=== PATIENT | female | born 1980 ===

== ENCOUNTER → 2020-07-28 10:35 | Outpatient (BNVA) | payer OTHER, SELFPAY | PROVIDERS: PCP Internal Medicine; Visit Provider Student in an Organized Health Care Education/Training Program | DX: M79.7 Fibromyalgia (principal) | CPT/HCPCS: 99212 ==

== ENCOUNTER 2021-01-24 10:21 | Outpatient (REF) | payer OTHER, SELFPAY ==
--- NOTE | ~2021-01-24 | XR_ITS ---
EXAMINATION: XR SHOULDER, RIGHT CLINICAL INFORMATION: Right shoulder pain. COMPARISON: None TECHNIQUE: AP external rotation, Grashey, scapular Y, and axillary views of the right shoulder. FINDINGS: The bones and soft tissues are normal. No fracture. Glenohumeral and acromioclavicular alignment is anatomic with normal joint space. No abnormal soft tissue calcifications. XR/XR shoulder RT min 2V IMPRESSION: Unremarkable right shoulder.
[2021-01-24 10:43] LABS: MANUAL DIFF FLAG NO
[2021-01-24 11:14] LABS: Basophils Percent Auto 0.5 % (0-2); Eosinophils Absolute Auto 0.2 X10*3/uL (0.0-0.4); Eosinophils Percent Auto 3.6 % (0-4); Hematocrit 31.1 % (37-47); Hemoglobin 8.7 g/dl (12.0-16.0); Imm Gran Abs Auto 0.02 X10*3/uL (0.00-0.03); Imm Gran Pct Auto 0.3 % (0.0-0.4); Lymphocytes Absolute Auto 2.4 X10*3/uL (1.2-4.9); Lymphocytes Percent Auto 37.7 % (20-40); Mean Corpuscular Hemoglobin 19.3 pg (27.0-33.0); Mean Platelet Volume 10.3 fL (9.4-12.3); Monocytes Absolute Auto 0.4 X10*3/uL (0.1-1.2); Monocytes Percent Auto 5.8 % (2-11); Neutrophils Absolute Auto 3.3 X10*3/uL (2.0-8.3); Neutrophils Percent Auto 52.1 % (45-73); Platelet Count 384 X10*3/uL (160-400); Red Blood Count 4.51 X10*6/uL (4.20-5.50); Red Cell Distribution Width 18.9 % (11.0-16.0); White Blood Count 6.3 X10*3/uL (4.8-10.8)
[2021-01-24 11:27] LABS: Appearance Urine HAZY; Color Urine YELLOW; Glucose Urine UA NEG (NEG); Leukocyte Esterase Urine TRACE (NEG); Nitrite Urine NEG (NEG); Specific Gravity - Urine >= 1.030 (1.005-1.025); UACC Culture Trigger YES; Urine Blood NEG (NEG); Urine Ketones NEG (NEG); Urine Protein 1+ MG/DL (NEG-TRACE)
[2021-01-24 11:44] LABS: Alanine Aminotransferase 15 U/L (0-31); Alkaline Phosphatase 88 U/L (39-117); Anion Gap 12 (12-20); Aspartate Amino Transferase 17 U/L (5-31); Bilirubin Total 0.3 mg/dL (0.0-1.0); Blood Urea Nitrogen 15 mg/dL (9-16); C Reactive Protein 2.88 mg/dL (< or = 0.50); Calcium 8.9 mg/dL (8.4-10.2); Carbon Dioxide 26 mmol/L (22-29); Chloride 105 mmol/L (96-108); Cholesterol 134 mg/dL; Estimated Glomerular Filt Rate > 60; Glucose Fasting 78 mg/dL (60-99); HDL Cholesterol 39 mg/dL; LDL Cholesterol Calculated 74 mg/dl; Magnesium 1.9 mg/dL (1.6-2.6); Sodium 139 mmol/L (135-145); Total Protein 7.4 g/dL (6.5-8.0); Triglycerides 106 mg/dL
[2021-01-24 12:03] LABS: Erythrocyte Sedimentation Rate 37 MM/HR (0-20)
[2021-01-24 12:07] LABS: TSH reflex Free T4 2.12 uIU/mL (0.32-4.0); Vitamin D 25-OH Total 16.3 ng/mL (>30)
[2021-01-24 12:14] LABS: Folate 17.5 ng/mL (> or = 4.0); Vitamin B12 283 pg/mL (200-900)
[2021-01-24 13:12] LABS: Bacteria Urine 2+ /LPF; RBC Urine 0 /HPF (0); Squamous Epithelial Cell Urine 2+ /LPF
[2021-01-24 13:17] LABS: Mucus Urine 1+ /LPF
== END 2021-01-24 10:22 | disposition home or self-care (01) ==
LOC: HO.LAB 10:21
PROVIDERS: PCP Internal Medicine; Visit Provider Internal Medicine
DX: Z00.00 Encounter for general adult medical examination without abnormal findings (principal); E66.9 Obesity, unspecified; M79.7 Fibromyalgia; R20.2 Paresthesia of skin; E55.9 Vitamin D deficiency, unspecified; D50.9 Iron deficiency anemia, unspecified; E53.8 Deficiency of other specified B group vitamins; K21.9 Gastro-esophageal reflux disease without esophagitis; E04.1 Nontoxic single thyroid nodule; M25.511 Pain in right shoulder
CPT/HCPCS: 36415; 73030; 80053; 80061; 81001; 82306; 82607; 82746; 83735; 84443; 85025; 85652; 86140; 87086; 87088; 87186

== ENCOUNTER 2021-02-24 16:20 | Outpatient (REF) | payer OTHER, SELFPAY ==
--- NOTE | ~2021-02-24 | US_ITS ---
EXAMINATION: US THYROID CLINICAL INFORMATION: Nontoxic single thyroid nodule. COMPARISON: Ultrasound soft tissue head/neck thyroid dated 04/15/2018. TECHNIQUE: Linear transducer grayscale and color Doppler examination with attention to the region of the thyroid. FINDINGS: SIZE: Measurements of the thyroid lobes and nodules are given in sagittal, anteroposterior and transverse dimensions respectively. Right Thyroid Lobe: 5.2 x 1.6 x 1.5 cm, volume 6.5 mL. Previously 4.2 x 1.8 x 1.3 cm, volume 5.1 mL. Parenchyma: The gland echotexture is homogeneous. Thyroid vascularity is normal. Left Thyroid Lobe: 5.3 x 1.2 x 1.3 cm, volume 4.3 mL. Previously 4.4 x 1.4 x 1.0 cm, volume 6.2 mL. Parenchyma: The gland echotexture is homogeneous. Thyroid vascularity is normal. Isthmus: 0.3 cm in maximum AP dimension. Previously 0.4 cm. No nodule is seen. Estimated total number of nodules greater than or equal to 1 cm: None. NODES: No lymphadenopathy is seen in the tissue surrounding the thyroid gland. US/US thyroid IMPRESSION: Unremarkable exam.
== END 2021-02-24 16:21 | disposition home or self-care (01) ==
LOC: HO.US 16:20
PROVIDERS: PCP Internal Medicine; Visit Provider Internal Medicine
DX: E04.1 Nontoxic single thyroid nodule (principal)
CPT/HCPCS: 76536

== ENCOUNTER 2023-02-01 11:14 | Outpatient (AMB) | payer OTHER, SELFPAY ==
--- NOTE | 2023-02-01 11:16 | A.OFFPC_ITS ---
Vital Signs 02/01/23 11:18 Height 5 ft 7 in Weight 200 lb 4 oz BMI 31.4 BP 120/68 Blood Pressure Location Lt brachial Position Sitting Pulse 86 Pulse Source Pulse Oximeter Pulse Oximetry (%) 98 Oxygen Delivery Method Room Air Intake Visit Reasons: Fibromyalgia F/U Intake Note: Patient is here to follow up on Fibromyalagia. Toddler Caregiver Required: No Personal Injury Litigation Paralegal: Not Required per policy Accompanied by: Self / Same As Patient Allergies morphine [MORPHINE] Allergy (Unknown, Verified 02/11/23 12:16) UNKNOWN, anxiety, anxiety penicillin V Allergy (Unknown, Verified 02/11/23 12:16) hives Medication List - Last Reconciled 02/11/23 by Rubén Tong MD ascorbic acid (vitamin C) (Vitamin C) 500 mg PO DAILY 90 days cane As directed cholecalciferol (vitamin D3) 125 mcg PO DAILY 90 days cyanocobalamin (vitamin B-12) (Vitamin B-12) 1,000 mcg PO DAILY 90 days cyclobenzaprine 10 mg PO TID PRN 30 days ferrous sulfate 325 mg PO DAILY 90 days meloxicam 15 mg PO DAILY PRN omeprazole 20 mg PO DAILY 90 days pregabalin (Lyrica) 75 mg PO Q8H 30 days quetiapine 25 mg PO BEDTIME 90 days sertraline 50 mg PO DAILY 30 days Tobacco use date assessed: 02/01/23 Dental Screening Dental Screen Date: 02/01/23 Did you have a dental visit in the last 12 months?: Yes Did you have a dental problem in the last 6 months where you did not have access to dental care?: No Was dental information given to patient?: Patient has dentist HPI Fibromyalgia F/U HPI Details 43-year-old female presents to the [facility] for a sick visit. I am covering for her primary provider. Patient is complaining of low back pain and neck pain. No history of trauma or injury prior to the onset of symptoms. Patient is giving history of fibromyalgia. Pain is in the neck area without any radiation into the arms. [facility] Medical History Anxiety Depression Fibromyalgia Gastroesophageal reflux disease without esophagitis SHAWN (iron deficiency anemia) Insomnia Iron deficiency anemia Obesity (BMI 30-39.9) Paresthesia of both hands Vitamin B12 deficiency Vitamin D deficiency Surgical History S/P repair of PDA (patent ductus arteriosus) Thyroid nodule Hx of cholecystectomy History of section Family History Father HTN (hypertension) CVD (cardiovascular disease) Mother CVD (cardiovascular disease) HTN (hypertension) Diabetes mellitus Sister No problems noted. Sister No problems noted. Son No problems noted. Son No problems noted. Daughter No problems noted. Social History Household Members: Children Housing: Apartment Alcohol intake: never Patient Tobacco Use Status: Never used Tobacco e-Cigarette/Vaping Use: Never Used Second Hand Smoke Exposure: No service: No Current occupational status: unemployed Cognitive needs: Yes (cane) Hearing needs: No Vision needs: Yes (glasses) Questionnaire PHQ-9 Over the last 2 weeks, how often have you been bothered by any of the following problems? 1. Little interest or pleasure in doing things: nearly every day 2. Feeling down, depressed, or hopeless: several days 3. Trouble falling or staying asleep, or sleeping too much: nearly every day 4. Feeling tired or having little energy: nearly every day 5. Poor appetite or overeating: nearly every day 6. Feeling bad about yourself - or that you are a failure or have let yourself or your family down: several days 7. Trouble concentrating on things, such as reading the newspaper or watching television: not at all 8. Moving or speaking so slowly that other people could have noticed. Or the opposite - being so fidgety or restless that you have been moving around a lot more than usual: not at all 9. Thoughts that you would be better off or of hurting yourself in some way: several days Total score: 15 Source: Developed by Drs. Thomas Oconnell, Mica Anglin, Konrad Fry and colleagues, with an educational vanna from [employer]. Thrive Questionnaire Date Thrive assessed: 02/01/23 I am a: Patient What is your living situation today?: I have a steady place to live Within the past 12 months, did the food you bought not last and you didn't have the money to get more?: Never true Within the past 12 months, did you worry whether your food would run out before you got money to buy more?: Never true Do you have trouble paying for medicines?: No Do you have trouble getting transportation to medical appointments?: No Do you have trouble paying your heating and electricity bill?: No Do you have trouble taking care of your child, family member or friend?: No Do you have trouble with day-to-day activities such as bathing, preparing meals, shopping, managing finances, etc.?: No Are you currently unemployed and looking for a job?: No Are you interested in more education?: No Currently or been in a relationship where the following occur: no concerns reported AUDIT C Alcohol Use Questionnaire (AUDIT-C) 1. How often do you have a drink containing alcohol?: Never Total Score: 0 LEIGHANN-7 AMB Questionnaire LEIGHANN-7 Date LEIGHANN - 7 assessed: 02/01/23 Feeling nervous, anxious, or on edge: 3 = Nearly every day Not being able to stop or control worryin = Nearly every day Worrying too much about different things: 3 = Nearly every day Trouble relaxin = Nearly every day Being so restless that it is hard to sit still: 2 = More than half the days Becoming easily annoyed or irritable: 2 = More than half the days Feeling afraid as if something awful might happen: 1 = Several days Total LEIGHANN-7 score (0-4 normal; 5-9 mild; 10-14 moderate; 15-21 severe): 17 Source: Developed by Drs. Thomas Oconnell, Mica Anglin, Konrad Fry and colleagues, with an educational vanna from [employer]. Physical exam (Primary Care) Vital Signs: Last Vital Signs Pulse 86 02/01/23 11:18 BP 120/68 02/01/23 11:18 Pulse Ox 98 02/01/23 11:18 Oxygen Delivery Method Room Air 02/01/23 11:18 BMI result Body Mass Index 31.4 Tobacco/Smoking Status: Tobacco use Status Tobacco use date assessed 02/01/23 02/01/23 11:18 Patient Tobacco Use Status Never used Tobacco 02/01/23 11:18 e-Cigarette/Vaping Use Never Used 02/01/23 11:18 PHQ-9: PHQ-9 Score PHQ-9: Total score 15 02/01/23 11:29 Thrive Assessment: Date of Thrive Assessment Date Thrive assessed 02/01/23 02/01/23 11:18 Currently or been in a relationship where the following occur: no concerns reported Const General: cooperative and healthy appearing Nutritional Appearance: well nourished Orientation/consciousness: patient oriented x3 Limitations: no limitations HENMT Head: Yes normal to inspection Eyes General: appearance normal, both eyes and all related structures Neck Neck: Yes normal visual inspection Chest Chest palpation & inspection: normal palpation of entire chest wall Resp Effort & Inspection: normal respiratory effort Neuro General: patient oriented x3 Assessment and Plan Assessment & Plan (1) Back pain: Code(s): M54.9 - Dorsalgia, unspecified Qualifiers: Back pain location: low back pain Chronicity: unspecified Back pain laterality: midline Sciatica presence: without sciatica Qualified Code(s): M54.50 - Low back pain, unspecified Plan: Continue anti-inflammatory and muscle relaxant. If symptoms not better to follow-up here. Medications: Changed From cyanocobalamin (vitamin B-12) 1,000 mcg PO DAILY 90 days 90 tabs 3RF E53.8 - Deficiency of other specified B group vitamins To cyanocobalamin (vitamin B-12) (Vitamin B-12) 1,000 mcg PO DAILY 90 tabs 3RF 90 days E53.8 - Deficiency of other specified B group vitamins Refilled cholecalciferol (vitamin D3) 125 mcg PO DAILY 90 caps 3RF 90 days E55.9 - Vitamin D deficiency, unspecified ferrous sulfate 325 mg PO DAILY 90 tabs 3RF 90 days D50.9 - Iron deficiency anemia, unspecified omeprazole 20 mg PO DAILY 90 tabs 3RF 90 days K21.9 - Gastro-esophageal reflux disease without esophagitis ascorbic acid (vitamin C) (Vitamin C) 500 mg PO DAILY 90 tabs 3RF 90 days M79.7 - Fibromyalgia quetiapine 25 mg PO BEDTIME 90 tabs 1RF 90 days F32.9 - Major depressive disorder, single episode, unspecified sertraline 50 mg PO DAILY 30 tabs 3RF 30 days F32.9 - Major depressive disorder, single episode, unspecified, F41.9 - Anxiety disorder, unspecified Coding Level of Care Code Est Pt Level 3 (18987) Diagnoses Midline low back pain without sciatica, unspecified chronicity M54.50 Back pain location: low back pain Chronicity: unspecified Back pain laterality: midline Sciatica presence: without sciatica
[2023-02-01 11:18] VITALS: BP 120/68; PULSE 86; O2SAT 98; BMI 31.4
== END 2023-02-01 11:42 | disposition home or self-care (01) ==
PROVIDERS: PCP Internal Medicine; Visit Provider Internal Medicine
DX: M54.50 Low back pain, unspecified (principal)
CPT/HCPCS: 99213

== ENCOUNTER 2023-11-06 09:33 | Outpatient (AMB) | payer OTHER, SELFPAY ==
[2023-11-06 09:36] VITALS: BP 136/72; PULSE 70; O2SAT 98; BMI 32.4
--- NOTE | 2023-11-06 09:36 | MHC.PC.OV ---
Vital Signs 11/06/23 09:36 Height 5 ft 7 in Weight 207 lb BMI 32.4 BP 136/72 Blood Pressure Location Lt brachial Position Sitting Pulse 70 Pulse Source Pulse Oximeter Pulse Oximetry (%) 98 Oxygen Delivery Method Room Air Intake Visit Reasons: Follow Up Allergies morphine [MORPHINE] Allergy (Unknown, Verified 11/06/23 10:19) UNKNOWN, anxiety, anxiety penicillin V Allergy (Unknown, Verified 11/06/23 10:19) hives Medication List - Last Reconciled 11/06/23 by Gerard Fonseca MD ascorbic acid (vitamin C) (Vitamin C) 500 mg PO DAILY 90 days cane As directed cholecalciferol (vitamin D3) 125 mcg PO DAILY 90 days cyanocobalamin (vitamin B-12) (Vitamin B-12) 1,000 mcg PO DAILY 90 days cyclobenzaprine 10 mg PO TID PRN 30 days ferrous sulfate 325 mg PO DAILY 90 days ibuprofen 600 mg PO TID PRN omeprazole 20 mg PO DAILY 90 days quetiapine 25 mg PO BEDTIME 90 days sertraline 50 mg PO DAILY 30 days Tobacco use date assessed: 11/06/23 Dental Screening Dental Screen Date: 11/06/23 Did you have a dental visit in the last 12 months?: Yes Did you have a dental problem in the last 6 months where you did not have access to dental care?: No Was dental information given to patient?: Patient has dentist HPI Follow Up HPI Details Patient comes in today for her follow up visit - was last seen by me over 2 years ago on 04/18/2021 States that she went to the ER at [facility] at the end of last month on 10/07/2023 for headaches and dysuria She recalls also experiencing some flank pains at the time Was supposedly diagnosed with a UTI and sent home on oral Abx, which she states helped only partially She went to a local urgent care center ([facility]) in [place] last week for persistent symptoms and was diagnosed with kidney stones and was prescribed some Tamsulosin and given IV Toradol for pain and was advised to follow up with her PCP She reports that her pain, which was initially over her flank, is now over the suprapubic area She has not seen any blood in her urine lately She is also complaining of multiple other symptoms, including recurrent headaches due to her migraine and generalized aches and pains related to her fibromyalgia States that she does have photophobia associated with her headaches Reports also recurrent tingling sensation and numbness in her hands and fingers often lately She denies any chest pains, no increased SOB No nausea/vomiting, no abdominal pain No change in bowel habits noted [facility] Medical History Gastroesophageal reflux disease without esophagitis Iron deficiency anemia Vitamin B12 deficiency Vitamin D deficiency Anxiety Obesity (BMI 30-39.9) Paresthesia of both hands Depression Insomnia Fibromyalgia SHAWN (iron deficiency anemia) Surgical History S/P repair of PDA (patent ductus arteriosus) Thyroid nodule Hx of cholecystectomy History of section Family History Father HTN (hypertension) CVD (cardiovascular disease) Mother CVD (cardiovascular disease) HTN (hypertension) Diabetes mellitus Sister No problems noted. Sister No problems noted. Son No problems noted. Son No problems noted. Daughter No problems noted. Social History Household Members: Children Housing: Apartment Alcohol intake: never Patient Tobacco Use Status: Never used Tobacco e-Cigarette/Vaping Use: Never Used Second Hand Smoke Exposure: No service: No Current occupational status: unemployed Cognitive needs: Yes (cane) Hearing needs: No Vision needs: Yes (glasses) Questionnaire PHQ-9 Over the last 2 weeks, how often have you been bothered by any of the following problems? 1. Little interest or pleasure in doing things: nearly every day 2. Feeling down, depressed, or hopeless: several days 3. Trouble falling or staying asleep, or sleeping too much: nearly every day 4. Feeling tired or having little energy: nearly every day 5. Poor appetite or overeating: nearly every day 6. Feeling bad about yourself - or that you are a failure or have let yourself or your family down: several days 7. Trouble concentrating on things, such as reading the newspaper or watching television: not at all 8. Moving or speaking so slowly that other people could have noticed. Or the opposite - being so fidgety or restless that you have been moving around a lot more than usual: not at all 9. Thoughts that you would be better off or of hurting yourself in some way: several days Total score: 15 Depression Screening Interpretation: Positive Depression Screening Follow-up: Existing condition and In treatment Depression Screening Done: Yes 56503 - PHQ-9 Billing: Yes Source: Developed by Drs. Thomas Oconnell, Mica Anglin, Konrad Fry and colleagues, with an educational vanna from [employer]. Thrive Questionnaire Date Thrive assessed: 11/06/23 I am a: Patient What is your living situation today?: I have a steady place to live Within the past 12 months, did the food you bought not last and you didn't have the money to get more?: Never true Within the past 12 months, did you worry whether your food would run out before you got money to buy more?: Never true Do you have trouble paying for medicines?: No Do you have trouble getting transportation to medical appointments?: No Do you have trouble paying your heating and electricity bill?: No Do you have trouble taking care of your child, family member or friend?: No Do you have trouble with day-to-day activities such as bathing, preparing meals, shopping, managing finances, etc.?: No Are you currently unemployed and looking for a job?: No Are you interested in more education?: No Currently or been in a relationship where the following occur: No concerns reported THRIVE Score: 0 AUDIT C Alcohol Use Questionnaire (AUDIT-C) 1. How often do you have a drink containing alcohol?: Never 3. How often do you have six or more drinks on one occasion?: Never Total Score: 0 Score Reviewed/Action Taken: Yes LEIGHANN-7 AMB Questionnaire LEIGHANN-7 Date LEIGHANN - 7 assessed: 11/06/23 Feeling nervous, anxious, or on edge: 3 = Nearly every day Not being able to stop or control worryin = Nearly every day Worrying too much about different things: 3 = Nearly every day Trouble relaxin = Nearly every day Being so restless that it is hard to sit still: 2 = More than half the days Becoming easily annoyed or irritable: 2 = More than half the days Feeling afraid as if something awful might happen: 1 = Several days Total LEIGHANN-7 score (0-4 normal; 5-9 mild; 10-14 moderate; 15-21 severe): 17 Source: Developed by Drs. Thomas Oconnell, Mica Anglin, Konrad Fry and colleagues, with an educational vanna from [employer]. Review of Systems Const Reports body aches, Denies chills, Reports fatigue, Denies fever(s) and Reports headache(s) (on and off, associated with photophobia) Eyes Reports photophobia (with headaches) ENT Denies dysphagia, Denies dizziness, Denies otalgia, Reports headache(s) (on and off, associated with photophobia), Denies neck pain, Denies odynophagia and Denies sore throat Card Denies chest pain, Denies palpitations and Denies dyspnea Resp Denies cough, Denies dyspnea and Denies wheezing GI Denies abdominal pain, Denies constipation, Denies dysphagia, Denies heartburn, Denies diarrhea, Denies nausea, Denies odynophagia and Denies vomiting Denies hematuria, Denies difficulty voiding, Denies nocturia, Reports dysuria and Reports urinary urgency Musc Reports back pain (on and off), Reports myalgias, Denies neck pain, Reports numbness (on and off in both hands) and Reports tingling (on and off in both hands) Skin/Breast Denies rash Neuro Denies dizziness, Reports headache(s) (on and off, associated with photophobia), Reports numbness (on and off in both hands), Reports tingling (on and off in both hands) and Reports paresthesias (on and off, generalized) Endo Reports fatigue and Denies palpitations Aller/Immun Denies wheezing Physical exam (Primary Care) Vital Signs: Last Vital Signs Pulse 70 11/06/23 09:36 BP 136/72 11/06/23 09:36 Pulse Ox 98 11/06/23 09:36 Oxygen Delivery Method Room Air 11/06/23 09:36 BMI result Body Mass Index 32.4 Tobacco/Smoking Status: Tobacco use Status Tobacco use date assessed 11/06/23 11/06/23 09:38 Patient Tobacco Use Status Never used Tobacco 11/06/23 09:36 e-Cigarette/Vaping Use Never Used 11/06/23 09:36 PHQ-9: PHQ-9 Score PHQ-9: Total score 15 11/06/23 09:38 Depression Screening Interpretation: Positive Depression Screening Follow-up: Existing condition and In treatment Thrive Assessment: Date of Thrive Assessment Date Thrive assessed 11/06/23 11/06/23 09:38 Currently or been in a relationship where the following occur: No concerns reported Const General: no acute distress and alert HENMT Ears: TM's normal bilaterally and EAC's normal Throat: Yes posterior oropharynx normal and Yes tonsils normal (no TP congestion noted) Eyes Direct Ophthalmoscopy: photophobia (with headaches) Neck Neck: Yes no lymphadenopathy and Yes tender (over the cervical spine and paraspinal areas bilaterally) Thyroid: Thyroid normal Resp Auscultation: clear to auscultation bilaterally, no rales and no wheezes Cardio Rate: regular rate Rhythm: regular rhythm Heart sounds: no murmurs GI Palpation (GI): Soft to palpation and nontender Auscultation: normal bowel sounds General: Yes no CVA tenderness Back/Spine/Pelvis Back: no CVA tenderness Thoracic/Lumbar Spine: paraspinal muscle tenderness bilaterally (over the cervical and thoracolumbar spine (diffuse)) and lumbar spinal tenderness Extrem General: Yes no clubbing, cyanosis or edema Right upper extremity: shoulder/upper arm Details: tenderness (diffusely over the scapular area) Left upper extremity: shoulder/upper arm Details: tenderness (diffusely over the scapular areas) Assessment and Plan Assessment & Plan (1) Urinary tract stones: Code(s): N20.9 - Urinary calculus, unspecified Plan: Was reportedly diagnosed with this at urgent care in [place] last week Will send patient for renal US for further evaluation She is encouraged to increase her oral fluid intake Will also refer her to urology for further evaluation and management Will start her on Meloxicam 15 mg QD with food PRN for pain (2) Paresthesia of both hands: Code(s): R20.2 - Paresthesia of skin Plan: Will send her for some labs BERHANE for further evaluation Advised that she has (+) Hx of B12 deficiency and this may be at least part of the reason for her recent symptoms If labs are normal, then will need to consider NCV for further evaluation (3) Iron deficiency anemia: Code(s): D50.9 - Iron deficiency anemia, unspecified Qualifiers: Iron deficiency anemia type: unspecified iron deficiency Qualified Code(s): D50.9 - Iron deficiency anemia, unspecified Plan: Patient advised that she is anemic on her most recent labs done at [facility] back on 10/07/2023, with H/H of 9.2/33.3 Continue Ferrous Sulfate 325 mg QD She is advised again that a lot of her current symptoms, including her fatigue, HIDALGO and paresthesias are most likely related to her significant anemia Will also her again to hematology for further evaluation and management - she was previously referred but she did not keep her appts (4) Fibromyalgia: Code(s): M79.7 - Fibromyalgia Plan: Reinforced increased physical activity and regular exercise to help manage her fibromyalgia symptoms better She was on Cyclobenzaprine 10 mg TID PRN previously but states that it has not been helping We tried starting her on Lyrica a couple of years ago but she did not start on the medication Will try switching her over to Tizanidine 4 mg TID PRN and start her on Gabapentin 100 mg TID Follow up with rheumatology as scheduled (5) Back pain: Code(s): M54.9 - Dorsalgia, unspecified Qualifiers: Back pain location: low back pain Chronicity: unspecified Back pain laterality: midline Sciatica presence: without sciatica Qualified Code(s): M54.50 - Low back pain, unspecified Plan: Reinforced activity and weight-lifting restrictions Will switch her Cyclobenzaprine to Tizanidine 4 mg TID PRN Follow up with pain management as scheduled (6) Gastroesophageal reflux disease without esophagitis: Code(s): K21.9 - Gastro-esophageal reflux disease without esophagitis Plan: Dietary restrictions reinforced Continue Omeprazole 20 mg QD (7) Vitamin B12 deficiency: Code(s): E53.8 - Deficiency of other specified B group vitamins Plan: Continue Vitamin B12 1000 mcg QD Will recheck her Vitamin B12 level for follow up, especially with her recent symptoms of paresthesias (8) Vitamin D deficiency: Code(s): E55.9 - Vitamin D deficiency, unspecified Plan: Continue Vitamin D3 1000 units QD Will recheck her Vitamin D level for follow up (9) Insomnia: Code(s): G47.00 - Insomnia, unspecified Qualifiers: Insomnia type: unspecified Qualified Code(s): G47.00 - Insomnia, unspecified Plan: Sleep hygiene reinforced Quetiapine at bedtime helps with her sleep (10) Anxiety: Code(s): F41.9 - Anxiety disorder, unspecified Plan: Continue Sertraline 50 mg QD (11) Depression: Code(s): F32.9 - Major depressive disorder, single episode, unspecified Qualifiers: Depression Type: unspecified Qualified Code(s): F32.9 - Major depressive disorder, single episode, unspecified Plan: Continue Quetiapine 25 mg Q HS and Sertraline 50 mg QD Follow up with psychiatry as scheduled (12) Obesity (BMI 30-39.9): Code(s): E66.9 - Obesity, unspecified Plan: Reinforced diet/exercise as tolerated/lose weight Plan Follow up in 4 months Orders: Orders UA CC w/rflx Micro + Cult Today M79.7 - Fibromyalgia, R20.2 - Paresthesia of skin, R30.0 - Dysuria Vitamin D 25-OH Total Today E55.9 - Vitamin D deficiency, unspecified, M79.7 - Fibromyalgia, R20.2 - Paresthesia of skin Magnesium Today E83.42 - Hypomagnesemia, R20.2 - Paresthesia of skin C Reactive Protein Today M79.7 - Fibromyalgia, R20.2 - Paresthesia of skin KARLOS Reflex Titer and Pattern Today M79.7 - Fibromyalgia, R20.2 - Paresthesia of skin US renal BI Today N20.9 - Urinary calculus, unspecified Complete Blood Count Auto Diff Today D64.9 - Anemia, unspecified, M79.7 - Fibromyalgia, R20.2 - Paresthesia of skin Comprehensive [place]. Panel Fast Today E78.00 - Pure hypercholesterolemia, unspecified, M79.7 - Fibromyalgia, R20.2 - Paresthesia of skin Lipid Panel Today E78.00 - Pure hypercholesterolemia, unspecified TSH reflex Free T4 Today E78.00 - Pure hypercholesterolemia, unspecified, R20.2 - Paresthesia of skin Vitamin B12 and Folate Today E53.8 - Deficiency of other specified B group vitamins, M79.7 - Fibromyalgia, R20.2 - Paresthesia of skin Erythrocyte Sedimentation Rate Today M79.7 - Fibromyalgia, R20.2 - Paresthesia of skin Rheumatoid Factor Today M79.7 - Fibromyalgia, R20.2 - Paresthesia of skin Lyme IgG/IgM w/reflex to WB Today M79.7 - Fibromyalgia, R20.2 - Paresthesia of skin Referrals Urology Referral N20.9 - Urinary calculus, unspecified Hematology & Oncology Referral D64.9 - Anemia, unspecified Medications: New gabapentin 100 mg PO TID 30 days 90 caps 2RF M79.7 - Fibromyalgia tizanidine 4 mg PO Q8H 30 days PRN 90 tabs 1RF fibromyalgia meloxicam Take with food 15 mg PO DAILY 15 days PRN 15 tabs 0RF increased pain Discontinued cyclobenzaprine Discontinued Reason: Doctor's Order 10 mg PO TID 30 days PRN 90 tabs 1RF muscle spasms M79.7 - Fibromyalgia Coding Level of Care Code Est Pt Level 4 (18863) Complex EM visit Add On G2211 Diagnoses Urinary tract stones N20.9 Paresthesia of both hands R20.2 Iron deficiency anemia, unspecified iron deficiency anemia type D50.9 Iron deficiency anemia type: unspecified iron deficiency Fibromyalgia M79.7 Midline low back pain without sciatica, unspecified chronicity M54.50 Back pain location: low back pain Chronicity: unspecified Back pain laterality: midline Sciatica presence: without sciatica Gastroesophageal reflux disease without esophagitis K21.9 Vitamin B12 deficiency E53.8 Vitamin D deficiency E55.9 Insomnia, unspecified type G47.00 Insomnia type: unspecified Anxiety F41.9 Depression, unspecified depression type F32.9 Depression Type: unspecified Obesity (BMI 30-39.9) E66.9
== END 2023-11-06 10:24 | disposition home or self-care (01) ==
PROVIDERS: PCP Internal Medicine; Visit Provider Internal Medicine
DX: N20.9 Urinary calculus, unspecified (principal); R20.2 Paresthesia of skin; D50.9 Iron deficiency anemia, unspecified; M79.7 Fibromyalgia; M54.50 Low back pain, unspecified; K21.9 Gastro-esophageal reflux disease without esophagitis; E53.8 Deficiency of other specified B group vitamins; E55.9 Vitamin D deficiency, unspecified; G47.00 Insomnia, unspecified; F41.9 Anxiety disorder, unspecified
CPT/HCPCS: 99214; G2211

== ENCOUNTER 2023-11-14 11:04 | Outpatient (REF) | payer OTHER, SELFPAY ==
--- NOTE | ~2023-11-14 | US_ITS ---
EXAMINATION: US RETROPERITONEAL COMPLETE (RENAL) CLINICAL INFORMATION: Urinary calculus. COMPARISON: Abdominal ultrasound 11/20/2017. TECHNIQUE: Real-time imaging of the kidneys and bladder. FINDINGS: RIGHT KIDNEY: 14.0 x 6.0 x 7.1 cm (SAG x AP x TRV). The kidney is normal in size, contour, and echogenicity. Renal cortical thickness is normal. No focal parenchymal solid lesions. At the upper pole, a 1.7 cm nonobstructing aggregation of calculi is seen, and at the interpolar aspect, a 5 mm nonobstructing calculus is seen. No hydronephrosis. At the upper pole, a 2.1 cm benign, simple cyst is seen, which requires no imaging follow-up. At the interpolar aspect, 1.2 x 1.1 x 1.2 cm and 1.6 x 1.4 x 1.4 cm mildly complex cysts are seen, with fine septations and wall calcifications. At the lower pole, a 2.9 x 2.2 x 2.7 cm mildly complex cyst is seen with fine septations. LEFT KIDNEY: 12.5 x 5.8 x 6.4 cm (SAG x AP x TRV). The kidney is normal in size, contour, and echogenicity. Renal cortical thickness is normal. No calculi or focal parenchymal solid lesions. No hydronephrosis. At the upper pole, 5.2 x 5.2 cm and 2.1 cm benign, simple cysts are seen. These require no imaging follow-up. At the lower pole, a 2.3 x 1.7 x 2.1 cm mildly complex cyst is seen, with fine septation. US/US renal BI IMPRESSION: 1. There are nonobstructing right renal calculi, as detailed. No left renal calculus is seen. There is no bilateral hydronephrosis. 2. There are mildly complex bilateral renal cysts, as detailed. If relevant to patient management, this could be further evaluated with CT or MRI (renal mass protocol). Electronically signed by: Anthony Gabriel MD 12/09/2023 09:41 AM EDT Workstation: [facility]
== END 2023-11-14 11:05 | disposition home or self-care (01) ==
LOC: HO.US 11:04
PROVIDERS: PCP Internal Medicine; Visit Provider Internal Medicine
DX: N20.9 Urinary calculus, unspecified (principal)
CPT/HCPCS: 76775

== ENCOUNTER 2024-04-25 09:59 | Emergency (ER) | payer MEDICAID, SELFPAY ==
[2024-04-25 10:14] VITALS: BP 116/59; PULSE 101; RESP 20; TEMP 37.1; O2SAT 97; BMI 34.2
[2024-04-25 10:42] LABS: IDNOW Serial# 08D9AD1C; Strep A Nucleic Acid Negative (Negative)
[2024-04-25 11:12] LABS: Influenza A PCR POSITIVE (Negative); Influenza B PCR NEGATIVE (Negative); Resp Syncy Virus RNA Qual PCR NEGATIVE (Negative); SARS COV2 PCR INHOUSE NEGATIVE (Negative)
--- NOTE | 2024-04-25 11:57 | ED_ITS ---
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 Her symptoms started yesterday. She has a dry cough. No significant chest pain or abdominal pain Related Data Home Medications ?Medication ?Instructions ?Recorded ?Confirmed cane #1 ea 03/19/20 11/06/23 Previous Rx's ?Medication ?Instructions ?Recorded ascorbic acid (vitamin C) 500 mg 500 mg PO DAILY 90 days #90 tabs 02/12/23 tablet (Vitamin C) cholecalciferol (vitamin D3) 125 125 mcg PO DAILY 90 days #90 caps 02/12/23 mcg (5,000 unit) capsule cyanocobalamin (vitamin B-12) 1,000 mcg PO DAILY 90 days #90 tabs 02/12/23 1,000 mcg tablet (Vitamin B-12) ferrous sulfate 325 mg (65 mg 325 mg PO DAILY 90 days #90 tabs 02/12/23 iron) tablet omeprazole 20 mg tablet,delayed 20 mg PO DAILY 90 days #90 tabs 02/12/23 release quetiapine 25 mg tablet 25 mg PO BEDTIME 90 days #90 tabs 05/25/23 sertraline 50 mg tablet 50 mg PO DAILY 30 days #30 tabs 05/25/23 ibuprofen 600 mg tablet 600 mg PO TID PRN pain #60 tabs 10/09/23 gabapentin 100 mg capsule 100 mg PO TID 30 days #90 caps 11/06/23 tamsulosin 0.4 mg capsule 0.4 mg PO BEDTIME 30 days #30 caps 11/06/23 tizanidine 4 mg tablet 4 mg PO Q8H PRN fibromyalgia 30 11/06/23 days #90 tabs meloxicam 15 mg tablet 15 mg PO DAILY PRN increased pain 11/24/23 15 days #15 tabs ibuprofen 600 mg tablet 600 mg PO Q6H PRN pain #20 tabs 04/25/24 oseltamivir 75 mg capsule (Tamiflu) 75 mg PO Q12H 5 days #10 caps 04/25/24 Allergies Allergy/AdvReac Type Severity Reaction Status Date / Time morphine [MORPHINE] Allergy Unknown UNKNOWN, Verified 04/25/24 10:15 anxiety, anxiety penicillin V Allergy Unknown hives Verified 04/25/24 10:15 Review of Systems Constitutional: Constitutional: Reports body ache(s), Reports chills, Reports fever(s) and Reports headache(s) ENT: Reports headache(s) and Reports sore throat Cardiovascular: Cardiovascular: Denies chest pain and Denies dyspnea Respiratory: Respiratory: Reports cough and Denies dyspnea Gastrointestinal: Gastrointestinal: Denies abdominal pain, Denies nausea and Denies vomiting Musculoskeletal: Musculoskeletal: Denies back pain Integumentary/Breasts: Skin/Breast: Denies rash Neurologic: Reports headache(s) [facility] Past Medical History Medical History Gastroesophageal reflux disease without esophagitis Iron deficiency anemia Vitamin B12 deficiency Vitamin D deficiency Anxiety Obesity (BMI 30-39.9) Paresthesia of both hands Depression Insomnia Fibromyalgia SHAWN (iron deficiency anemia) Surgical History S/P repair of PDA (patent ductus arteriosus) Thyroid nodule Hx of cholecystectomy History of section Family History Family History Father HTN (hypertension) CVD (cardiovascular disease) Mother CVD (cardiovascular disease) HTN (hypertension) Diabetes mellitus Sister No problems noted. Sister No problems noted. Son No problems noted. Son No problems noted. Daughter No problems noted. Social History Social History Household Members: Children Housing: Apartment Alcohol intake: never Patient Tobacco Use Status: Never used Tobacco e-Cigarette/Vaping Use: Never Used Second Hand Smoke Exposure: No Advance Directives: No Advance Directives Information Provided: Yes service: No Current occupational status: unemployed Cognitive needs: Yes (cane) Hearing needs: No Vision needs: Yes (glasses) Physical Exam ED Vital Signs: Vital Signs - 24 hr 04/25/24 10:14 04/25/24 13:00 Temperature 98.8 F 98.8 F Pulse Rate 101 H 101 H Respiratory Rate 20 20 Blood Pressure 116/59 L 116/59 L Pulse Oximetry 97 97 Oxygen Delivery Method Room Air Room Air BMI result Body Mass Index 34.2 Const General: healthy appearing, comfortable, no acute distress, alert and awake Nutritional Appearance: well nourished Orientation/consciousness: patient oriented x3 HENMT Head: Yes normocephalic and Yes atraumatic Throat: Yes posterior oropharynx normal Eyes Eyelids: Yes eyelids normal Conjunctivae: conjunctivae normal Sclerae: sclerae normal Corneas: corneas normal Pupils: Equal, round and reactive pupils present EOM: EOMs intact bilaterally Neck Neck: Yes full ROM Resp Effort & Inspection: normal respiratory effort, able to speak in complete sentences and not labored Skin General skin exam: elasticity normal Neuro General: patient oriented x3 Cranial nerves: Yes Equal, round and reactive pupils present and Yes Bilaterally intact EOM present Cognition (Neuro): normal cognition Extrem Other: Moving all extremities well without any obvious deformities Medical Decision Making Medical Decision Making MDM Narrative: 44-year-old female presents for evaluation of flu-like symptoms. She tested positive for influenza, she is well-appearing with stable vital signs and a reassuring exam. I discussed Tamiflu treatment with the patient and she would like to be prescribed Tamiflu. Differential Diagnosis Differential Diagnoses: The differential diagnosis associated with the presentation includes Influenza COVID-19 Bronchitis Viral syndrome Strep pharyngitis Lab Data Labs: Lab Results 04/25/24 Range/Units 10:25 Influenza Type A (PCR) POSITIVE A (Negative) Influenza Type B (PCR) NEGATIVE (Negative) RSV RNA Qual (PCR) NEGATIVE (Negative) SARS-CoV-2 RNA (RT-PCR) NEGATIVE (Negative) S. pyogenes GrpA LUL Negative (Negative) Discharge Plan Discharge Clinical Impression: Influenza A Patient Disposition: Home, Self-Care Instructions: Influenza (ED) Additional Instructions: You tested positive for influenza A Use ibuprofen/Tylenol as needed for fevers and body aches Hydrate well You may use Tamiflu twice daily for the next 5 days, but this may cause diarrhea Follow-up with your primary doctor, return for new or worsening symptoms Prescriptions: New oseltamivir [Tamiflu] 75 mg capsule 75 mg PO Q12H 5 Days Qty: 10 0RF ibuprofen 600 mg tablet 600 mg PO Q6H PRN (Reason: pain) Qty: 20 0RF No Action (DME) cane Device See Rx Instructions .ROUTE .MEDSUPPLY Qty: 1 Rx Instructions: As directed ascorbic acid (vitamin C) [Vitamin C] 500 mg tablet 500 mg PO DAILY 90 Days Qty: 90 3RF cholecalciferol (vitamin D3) 125 mcg (5,000 unit) capsule 125 mcg PO DAILY 90 Days Qty: 90 3RF cyanocobalamin (vitamin B-12) [Vitamin B-12] 1,000 mcg tablet 1,000 mcg PO DAILY 90 Days Qty: 90 3RF ferrous sulfate 325 mg (65 mg iron) tablet 325 mg PO DAILY 90 Days Qty: 90 3RF omeprazole 20 mg tablet,delayed release (DR/EC) 20 mg PO DAILY 90 Days Qty: 90 3RF quetiapine 25 mg tablet 25 mg PO BEDTIME 90 Days Qty: 90 0RF sertraline 50 mg tablet 50 mg PO DAILY 30 Days Qty: 30 2RF ibuprofen 600 mg tablet 600 mg PO TID PRN (Reason: pain) Qty: 60 0RF Rx Instructions: take with food meloxicam 15 mg tablet 15 mg PO DAILY PRN (Reason: increased pain) 15 Days Qty: 15 0RF Rx Instructions: Take with food gabapentin 100 mg capsule 100 mg PO TID 30 Days Qty: 90 2RF tizanidine 4 mg tablet 4 mg PO Q8H PRN (Reason: fibromyalgia) 30 Days Qty: 90 1RF tamsulosin 0.4 mg capsule 0.4 mg PO BEDTIME 30 Days Qty: 30 0RF Stand Alone Forms: Work/School Release Interventions: ED Discharge Assessment Last Done: 04/25/24 13:00 Discharge Date/Time: 04/25/24 13:01 Print Language: Swedish
[2024-04-25 13:00] VITALS: BP 116/59; PULSE 101; RESP 20; TEMP 37.1; O2SAT 97
== END 2024-04-25 13:01 | disposition home or self-care (01) ==
PROVIDERS: Emergency Provider Emergency Medicine; PCP Internal Medicine
DX: J10.1 Influenza due to other identified influenza virus with other respiratory manifestations (principal); R50.9 Fever, unspecified; R05.9 Cough, unspecified; Z03.818 Encounter for observation for suspected exposure to other biological agents ruled out
CPT/HCPCS: 0241U; 87651; 99282; 99283